=== PATIENT | male | born 1975 | race Caucasian/White ===

== ENCOUNTER → 2022-11-05 | Outpatient (CLI) | payer BC ==
[~2022-11-05] MED LIST: GADOTERATE 0.5 MMOL/ML (CLARISCAN) 20 ML VIAL IV ONE
--- NOTE | 2022-11-05 17:57 | Diagnostic Imaging Report ---
EXAMINATION: MRI of the abdomen with and without contrast. TECHNIQUE: Multiplanar, multisequence MR images of the abdomen were obtained with and without intravenous contrast. HISTORY: Cirrhosis and epigastric pain COMPARISON: None available. FINDINGS: Liver: No suspicious liver lesions. No steatosis. Nodular liver is compatible with cirrhosis. No enhancing observations throughout the liver. Ducts: No biliary ductal dilation. Gallbladder: Surgically absent. Pancreas: Normal. Spleen: Spleen is normal in size at 11 cm and has no focal abnormality. Adrenals: Normal. Kidneys: No suspicious lesions. No hydronephrosis. Bowel: Normal. Other: No lymphadenopathy. Visualized portions of the thorax are normal. No suspicious osseus lesions. IMPRESSION: 1. Nodular liver is most indicative of cirrhosis. No suspicious hepatic lesions. 2. No secondary features of portal hypertension. 3. No acute abnormality in the abdomen. Dictated by: Dictated on workstation # [id number]
== END ==
LOC: RAD 12:30
PROVIDERS: ATTEND Family Medicine
DX: R16.0 Hepatomegaly, not elsewhere classified (principal); K77 Liver disorders in diseases classified elsewhere; E88.01 Alpha-1-antitrypsin deficiency
CPT/HCPCS: 74183